=== PATIENT | female | born 1945 | race Caucasian/White ===

== ENCOUNTER 2019-04-09 12:33 | Outpatient (CLI) | payer MEDICARE | END 2019-04-09 12:34 | disposition EMS.NT | LOC: EMS 12:33 | PROVIDERS: ATTEND Surgery | DX: S01.82XA Laceration with foreign body of other part of head, initial encounter (principal); S61.422A Laceration with foreign body of left hand, initial encounter; S61.421A Laceration with foreign body of right hand, initial encounter; W25.XXXA Contact with sharp glass, initial encounter; V40.5XXA Car driver injured in collision with pedestrian or animal in traffic accident, initial encounter; Y92.414 Local residential or business street as the place of occurrence of the external cause ==

== ENCOUNTER 2019-04-09 13:20 | Emergency (ER) | payer MEDICARE ==
[2019-04-09 13:32] VITALS: BP 169/95
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
== END 2019-04-09 15:17 | disposition home or self-care (01) ==
LOC: ED 13:20
DX: Z04.1 Encounter for examination and observation following transport accident (principal); I10 Essential (primary) hypertension; F17.200 Nicotine dependence, unspecified, uncomplicated
CPT/HCPCS: 99282; 99284